=== PATIENT | female | born 1965 | race Caucasian/White ===

== ENCOUNTER → 2017-05-09 | Outpatient (CLI) | payer BC ==
--- NOTE | ~2017-05-09 | ECH ---
Transthoracic Echocardiography Report (TTE) Demographics Patient Name ZAYDA ROBLES Date of Study 05/09/2017 Patient Number [id number] Visit Number [id number] Date of 1965 Room Number Accession Number [id number] Gender Female Age 51 year(s) Referring Awilda Menchaca MD Dope Sprayer Alley Bob [facility] Physician Physician Interpreting Terrence Haile Head Pumper Physician MD Supervising Ordering Physician Cecil Foster MD, MD/[facility] Nurse Stress Society Editor Conclusions Summary Technically adequate exam. The estimated left ventricular ejection fraction is 60-65%. The left ventricle is mildly dilated . Mild concentric left ventricular hypertrophy. Diastolic assessment reveals Grade I diastolic dysfunction. Normal right ventricle structure and function. The left atrium is severely dilated by LA volume index measurement. Bubble study was done, there is no evidence for a PFO or ASD. The right atrium is mildly dilated. Moderate-severe mitral regurgitation by color Doppler. The mitral regurgitation jet is posteriorly directed. No definitive mitral valve leaflet prolapse. Mild tricuspid regurgitation by color Doppler. There is mild pulmonary hypertension. The pulmonary pressure (RVSP) is 36 mmHg. Procedure Type of Study TTE procedure:Echo Complete SF. Procedure Date Date: 05/09/2017 Start: 10:43 AM Technical Quality: Good visualization Additional Indications:fingers turning blue, R/O source of thrombo-embolic event Appropriate Use Criteria: 9 Contrast Medium: Bubble Study. Height: 66 inches Weight: 230 pounds BSA: 2.12 m Rhythm: Sinus bradycardia HR: 49 bpm BP: 140/65 mmHg M-Mode/2D Measurements LV Diastolic Dimension: 5.69 cm LV Systolic Dimension: 4.56 cm LV Septum Diastolic: 1.13 cm LV PW Diastolic: 1.09 cm AO Root Dimension: 2.39 cm Cardiac Output: 3.6 l/min LA Dimension: 4.67 cm Cardiac Index: 1.7 l/min*m RV Diastolic Dimension: 3.17 cm LA volume index: 55 ml/m LVOT: 1.96 cm LVOT VTI: 24.33 cm RV Base: 3.9 cm LV Stroke volume: 73.37 ml RV Mid: 2.7 cm LV Stroke volume index: 34.61 ml/m RV Length: 7.9 cm Doppler Measurements AV Peak Velocity: 1.57 m/s MV Peak E-Wave: 0.89 m/s AV Peak Gradient: 9.86 mmHg MV Peak A-Wave: 1.1 m/s AV Mean Gradient: 4.18 mmHg MV E/A Ratio: 0.81 LVOT Peak Velocity: 0.85 m/s MV P1/2t: 67.9 msec AV Area (Continuity):2.09 cm MV Deceleration Time: 236.2 msec TR Velocity:2.79 m/s MV Area (PHT): 3.24 cm TR Gradient:31.06 mmHg PV Peak Velocity: 1.37 m/s Estimated RAP:5 mmHg PV Peak Gradient: 7.5 mmHg Estimated RVSP: 36 mmHg Estimated PASP: 36.06 mmHg RA Area: 18.47 cm Findings Left Ventricle The left ventricle is mildly dilated . Mild concentric left ventricular hypertrophy. Diastolic assessment reveals Grade I diastolic dysfunction. Right Ventricle Normal right ventricle structure and function. Left Atrium The left atrium is severely dilated by LA volume index measurement. Bubble study was done, there is no evidence for a PFO or ASD. Right Atrium The right atrium is mildly dilated. Mitral Valve Mild thickening of the mitral valve leaflets. Moderate-severe mitral regurgitation by color Doppler. The mitral regurgitation jet is posteriorly directed . Aortic Valve Normal aortic valve structure and function. Tricuspid Valve Normal appearing tricuspid valve. Mild tricuspid regurgitation by color Doppler. There is mild pulmonary hypertension. The pulmonary pressure (RVSP) is 36 mmHg. Pulmonic Valve Normal pulmonic valve structure and function. Mild pulmonic valve regurgitation by color Doppler. Pericardial Effusion Trivial global pericardial effusion. Miscellaneous Visualized portions of the aortic root and ascending aorta appear normal in size. Pleural Effusion No evidence of pleural effusion. Contractility Score LV regional wall motion:(0-Non visualized 1-Normal 2-Hypokinesis 3-Akinesis 4-Dyskinesis 5-Aneurysm) Signature
== END | disposition home or self-care (01) ==
LOC: CARD 10:27
DX: R23.0 Cyanosis (principal); I50.30 Unspecified diastolic (congestive) heart failure; I08.1 Rheumatic disorders of both mitral and tricuspid valves; I51.7 Cardiomegaly